=== PATIENT | female | born 1995 | race African-American/Black ===

== ENCOUNTER 2017-05-10 20:59 | Emergency (ER) | payer MEDICAID, MEDICARE ==
[~2017-05-10] VITALS: Ht 162.6 cm; Wt 72.0 kg
[2017-05-11] MEDS ORDERED: IBUPROFEN 600MG TABLET PO ONE (01:00)
[2017-05-11 01:18] VITALS: BP 118/74
== END 2017-05-11 01:18 | disposition home or self-care (01) ==
LOC: ER 21:30
DX: H10.32 Unspecified acute conjunctivitis, left eye (principal); J45.909 Unspecified asthma, uncomplicated; F17.210 Nicotine dependence, cigarettes, uncomplicated; L03.213 Periorbital cellulitis; R59.0 Localized enlarged lymph nodes; F41.9 Anxiety disorder, unspecified; F12.10 Cannabis abuse, uncomplicated
CPT/HCPCS: 99283

== ENCOUNTER 2018-10-04 10:46 | Emergency (ER) | payer MEDICAID, MEDICARE ==
[~2018-10-04] VITALS: Ht 165.1 cm; Wt 65.0 kg
[2018-10-04 11:02] VITALS: BP 116/76
[2018-10-04] MEDS ORDERED: DIPHENHYDRAMINE 25MG CAPSULE PO ONE (11:30)
[2018-10-04] MEDS ORDERED: PREDNISONE 20MG TABLET PO ONE (11:30)
== END 2018-10-04 11:42 | disposition home or self-care (01) ==
LOC: ER 10:46
DX: T78.40XA Allergy, unspecified, initial encounter (principal); F41.9 Anxiety disorder, unspecified; J45.909 Unspecified asthma, uncomplicated; F12.10 Cannabis abuse, uncomplicated; Z98.890 Other specified postprocedural states; Z88.0 Allergy status to penicillin; X58.XXXA Exposure to other specified factors, initial encounter
CPT/HCPCS: 99283; J7512; Q0163

== ENCOUNTER 2018-10-23 08:20 | Emergency (ER) | payer MEDICARE ==
[~2018-10-23] VITALS: Ht 165.1 cm; Wt 74.0 kg
[2018-10-23 08:27] VITALS: BP 146/70
== END 2018-10-23 11:01 | disposition left against medical advice (07) ==
LOC: ER 08:20
DX: Z53.21 Procedure and treatment not carried out due to patient leaving prior to being seen by health care provider (principal)

== ENCOUNTER 2020-04-27 09:38 | Emergency (ER) | payer MEDICARE ==
[~2020-04-27] VITALS: Ht 165.1 cm; Wt 77.0 kg
[2020-04-27] MEDS ORDERED: ALBUTEROL (0.083%) 2.5MG/3ML NEB HHN NR (10:30)
[2020-04-27] MEDS ORDERED: MAGNESIUM 2 G PREMIX 50 ML IV NR (10:30)
[2020-04-27] MEDS ORDERED: METHYLPREDNISOLONE SOD SUCC 125 MG/2 ML VIAL IV NR (10:31)
[2020-04-27 10:33] LABS: BASOPHILS % 0.5 % (0.0-2.0); EOSINOPHILS % 1.1 % (0.0-5.0); HEMATOCRIT. 35.4 % (36.0-48.0); HEMOGLOBIN. 12.3 g/dL (12.0-16.0); LYMPHOCYTES % 17.6 % (20.0-50.0); MEAN CORPUSCULAR HEMOGLOBIN 32.2 pg (28.0-32.0); MEAN CORPUSCULAR VOLUME 92.5 fL (81.0-99.0); MEAN PLATELET VOLUME 9.7 fl (7.4-10.4); MONOCYTES % 5.8 % (2.0-8.0); PLATELET 198 x1000/uL (130-400); RED BLOOD CELL COUNT 3.83 mill/uL (4.2-5.4); RED CELL DISTRIBUTION WIDTH 13.6 % (11.6-14.6)
[2020-04-27 11:00] LABS: CHLORIDE 108 mEq/L (98-107)
[2020-04-27 11:52] LABS: B-HCG QUANTITATIVE 45013 mIU/mL (<3)
[2020-04-27 14:50] VITALS: BP 112/68
== END 2020-04-27 14:50 | disposition home or self-care (01) ==
LOC: ER 09:50
DX: O99.511 Diseases of the respiratory system complicating pregnancy, first trimester (principal); J45.901 Unspecified asthma with (acute) exacerbation; O46.91 Antepartum hemorrhage, unspecified, first trimester; O26.891 Other specified pregnancy related conditions, first trimester; R10.30 Lower abdominal pain, unspecified; F12.10 Cannabis abuse, uncomplicated; D64.9 Anemia, unspecified; R05 Cough; R06.02 Shortness of breath; Z98.890 Other specified postprocedural states; Z3A.09 9 weeks gestation of pregnancy
CPT/HCPCS: 36415; 71045; 76801; 76817; 80053; 81025; 84702; 85025; 86850; 86900; 86901; 93005; 94640; 96365; 96375; 99285; J2930; J3475; Z7610

== ENCOUNTER 2024-05-12 23:34 | Emergency (ER) | payer MEDICAID, MEDICARE ==
[~2024-05-12] VITALS: Ht 165.1 cm; Wt 79.3 kg
[2024-05-12 23:43] VITALS: O2SAT 99
[2024-05-13 00:42] LABS: CLARITY URINE CLEAR (CLEAR); COLOR URINE YELLOW (YELLOW); GLUCOSE URINE NEGATIVE (NEGATIVE); KETONES URINE NEGATIVE (NEGATIVE); LEUKOCYTE ESTERASE URINE NEGATIVE (NEGATIVE); NITRITE URINE NEGATIVE (NEGATIVE); OCCULT BLOOD URINE 3+ (NEGATIVE); PH URINE 5.5 (4.5-8.0); PROTEIN URINE NEGATIVE (NEGATIVE); SPECIFIC GRAVITY URINE 1.019 (1.005-1.030); UROBILINOGEN URINE 0.2 E.U./dL (0.2-1.0)
[2024-05-13 01:32] LABS: BASOPHILS % 0.5 % (0.0-2.0); EOSINOPHILS % 2.3 % (0.0-5.0); HEMATOCRIT. 37.9 % (36.0-48.0); HEMOGLOBIN. 12.4 g/dL (12.0-16.0); LYMPHOCYTES % 28.8 % (20.0-50.0); MEAN CORPUSCULAR HEMOGLOBIN 31.4 pg (28.0-32.0); MEAN CORPUSCULAR HGB CONC 32.7 g/dL (31.0-37.0); MEAN CORPUSCULAR VOLUME 96.1 fL (81.0-99.0); MEAN PLATELET VOLUME 9.8 fl (7.4-10.4); MONOCYTES % 6.7 % (2.0-8.0); NEUTROPHILS % 61.7 % (40.0-76.0); PLATELET 200 x1000/uL (130-400); RED BLOOD CELL COUNT 3.95 mill/uL (4.2-5.4); RED CELL DISTRIBUTION WIDTH 14.5 % (11.6-14.6)
[2024-05-13 01:39] LABS: INR 0.9; PROTHROMBIN TIME 10.4 sec (9.6-11.0)
[2024-05-13 01:50] LABS: CHLORIDE 109 mEq/L (98-107); POTASSIUM 4.2 mEq/L (3.5-5.1); SODIUM 140 mEq/L (136-145)
[2024-05-13 01:51] LABS: CALCIUM 9.7 mg/dL (8.7-10.4); CARBON DIOXIDE 26 mEq/L (21-32)
[2024-05-13 01:56] LABS: CREATININE 0.7 mg/dL (0.6-1.0); GLUCOSE 92 mg/dL (70-105); UREA NITROGEN BLOOD 12 mg/dL (9-23)
[2024-05-13 01:59] LABS: B-HCG QUANTITATIVE < 1 mIU/mL (<3)
[2024-05-13 02:18] VITALS: BP 108/62; PULSE 64; RESP 20; TEMP 37.05852; O2SAT 100
[2024-05-13 02:57] LABS: RBC URINE 0-2 /hpf (0-2); SQUAMOUS EPITHELIAL CELL URINE 1+ /lpf (RARE/1+); WBC URINE 0-2 /hpf (0-2)
[2024-05-13 03:00] LABS: BACTERIA URINE TRACE
== END 2024-05-13 02:20 | disposition home or self-care (01) ==
LOC: ER 23:43
DX: N93.9 Abnormal uterine and vaginal bleeding, unspecified (principal); J45.909 Unspecified asthma, uncomplicated; F41.9 Anxiety disorder, unspecified; F12.10 Cannabis abuse, uncomplicated; R10.2 Pelvic and perineal pain; D64.9 Anemia, unspecified; Z88.0 Allergy status to penicillin
CPT/HCPCS: 36415; 76830; 76856; 80048; 81003; 81025; 84702; 85025; 86850; 86900; 99284

== ENCOUNTER 2024-06-24 09:14 | Emergency (ER) | payer MEDICAID ==
[~2024-06-24] VITALS: Ht 162.6 cm; Wt 81.0 kg
[2024-06-24 09:21] VITALS: O2SAT 99
[2024-06-24 09:22] VITALS: TEMP 98.4
[2024-06-24 10:55] VITALS: BP 117/70; PULSE 74; RESP 20; O2SAT 98
[2024-06-24] MEDS: IBUPROFEN 400MG TABLET PO ONE (10:55)
[2024-06-24] MEDS: ALBUTEROL (0.5%) 2.5MG/0.5ML NEB HHN ONE (10:55)
[2024-06-24] MEDS ORDERED: ALBU18HF2 IH (11:22)
[2024-06-24] MEDS ORDERED: DEXAMETHASONE 0.5MG/5ML ORAL SYR PO ONE (11:30)
[2024-06-24] MEDS ORDERED: DEXAMETHASONE 10 MG/ML VIAL PO NR (12:00)
== END 2024-06-24 11:32 | disposition home or self-care (01) ==
LOC: ER 09:14
DX: J45.901 Unspecified asthma with (acute) exacerbation (principal); F12.10 Cannabis abuse, uncomplicated; F41.9 Anxiety disorder, unspecified; Z88.0 Allergy status to penicillin; Z98.890 Other specified postprocedural states
CPT/HCPCS: 71045; 94640; 94070; 99283; Z7610 ×3; J8540

== ENCOUNTER 2025-07-01 09:53 | Emergency (ER) | payer OTHER, MEDICAID ==
[~2025-07-01] VITALS: Ht 165.1 cm; Wt 79.0 kg
[~2025-07-01 09:53] MED LIST: ALBU18HF2 IH
[2025-07-01 09:55] VITALS: O2SAT 100
[2025-07-01] MEDS: ACETAMINOPHEN 325MG TABLET PO ONE (10:35)
[2025-07-01] MEDS ORDERED: ACET-2708 MT (11:51)
[2025-07-01 12:23] VITALS: BP 114/60; PULSE 90; RESP 18; TEMP 36.7; O2SAT 100
== END 2025-07-01 13:17 | disposition home or self-care (01) ==
LOC: ER 09:53
DX: S00.03XA Contusion of scalp, initial encounter (principal); F41.9 Anxiety disorder, unspecified; J45.909 Unspecified asthma, uncomplicated; F12.90 Cannabis use, unspecified, uncomplicated; Z98.890 Other specified postprocedural states; Z88.0 Allergy status to penicillin; V49.9XXA Car occupant (driver) (passenger) injured in unspecified traffic accident, initial encounter; Y93.89 Activity, other specified; Y92.89 Other specified places as the place of occurrence of the external cause; Y99.8 Other external cause status
CPT/HCPCS: 70486; 81025; 99284